=== PATIENT | male | born 1975 | race Caucasian/White ===

== ENCOUNTER 2016-06-17 08:59 | Emergency (ER) | payer OTHER ==
[2016-06-17 09:07] VITALS: BP 152/85; PULSE 61; TEMP 97.7; BMI 25.7
--- NOTE | 2016-06-17 09:50 | PDOC ---
History of Present Illness - General Chief Complaint: Bite Stated Complaint: TICK BITE Time Seen by Provider: 06/17/16 09:44 History Source: Patient Exam Limitations: No Limitations - History of Present Illness Initial Comments: CHIEF COMPLAINT: 41 y/o afebrile male with PMH lyme disease here to check for possible tick bite. HISTORY OF PRESENT ILLNESS: The patient works outside for the city and states yesterday he noticed something on his left thigh. He grabbed it out of his skin and threw it away but isn't sure if it was a tick. He states it could also have been a Prickly saenz. He denies all symptoms including fever, joint pain. Vital signs on arrival are within normal limits. REVIEW OF SYSTEMS: GENERAL/CONSTITUTIONAL: No fever/chills. No weakness. No weight change. HEAD, EYES, EARS, NOSE AND THROAT: No change in vision. No ear pain or discharge. No sore throat. CARDIOVASCULAR: No chest pain or shortness of breath. RESPIRATORY: No cough, wheezing, or hemoptysis. GASTROINTESTINAL: No nausea, vomiting, diarrhea, constipation. GENITOURINARY: No dysuria, frequency, or change in urination. MUSCULOSKELETAL: No joint or muscle swelling or pain. No neck or back pain. SKIN: +scab to left thigh NEUROLOGIC: No headache, vertigo, loss of consciousness, or loss of sensation. PHYSICAL EXAM: GENERAL: The patient is awake, alert, and fully oriented, in no acute distress. HEAD: Normal with no signs of trauma. EXTREMITIES: Normal range of motion, no edema. NEUROLOGICAL: Normal speech, normal gait. CN II-XII grossly intact. SKIN: Pin sized non raised scab to anterior, mid left thigh. No surrounding erythema. No streaking. No bulls eye rash. Past History - Past Medical History Allergies/Adverse Reactions: Allergies Allergy/AdvReac Type Severity Reaction Status Date / Time No Known Allergies Allergy Verified 06/17/16 09:03 Home Medications: Ambulatory Orders Doxycycline Hyclate [Vibramycin -] 100 mg PO BID #28 cap 06/17/16 Other medical history: LYME DISEASE - Psycho/Social/Smoking Cessation Hx Suicidal Ideation: No Smoking History: Never smoked *Physical Exam - Vital Signs Last Vital Signs Temp Pulse Resp BP Pulse Ox 97.7 F 61 19 152/85 98 06/17/16 09:03 06/17/16 09:03 06/17/16 09:03 06/17/16 09:03 06/17/16 09:03 Medical Decision Making - Medical Decision Making A/P: 41 y/o male concerned for tick bite. He is unsure if it was a tick that caused his scab on his leg. WIll send rx for doxy to his pharmacy for precaution as he has had lyme disease in the past. Pt instructed to f/u with his doctor before the doxy runs out. The patient verbalizes understanding of all instructions, has no further questions and is awaiting discharge. *DC/Admit/Observation/Transfer Diagnosis at time of Disposition: Tick bite - Discharge Dispostion Disposition: HOME Condition at time of disposition: Good - Referrals Referrals: Rubens Botello MD [Primary Care Provider] - - Patient Instructions Printed Discharge Instructions: DI for Insect Bites and Stings Additional Instructions: DIscharge Instructions: -Take doxycycline as prescribed -Follow up with Dr. Botello within 2 weeks
== END 2016-06-17 10:05 | disposition home or self-care (01) ==
LOC: JERFT 08:59
DX: S70.362A Insect bite (nonvenomous), left thigh, initial encounter (principal); W57.XXXA Bitten or stung by nonvenomous insect and other nonvenomous arthropods, initial encounter; Y93.89 Activity, other specified; Y92.89 Other specified places as the place of occurrence of the external cause; Y99.0 Civilian activity done for income or pay
CPT/HCPCS: 99281-25